=== PATIENT | male | born 1995 | race Caucasian/White ===

== ENCOUNTER 2018-05-13 09:21 | Emergency (ER) | payer BC, SELFPAY ==
[2018-05-13 09:23] VITALS: BP 129/81; PULSE 90; RESP 16; TEMP 37.2; O2SAT 98; BMI 30.4
--- NOTE | 2018-05-13 09:34 | ED.VISSUMM ---
- ER Visit Summary Date of Service: 05/13/18 Chief Complaint: Fall History of Present Illness: The patient is a 23 M who presents after a fall that occurred earlier this morning. Patient admits to being intoxicated when he fell. Patient states he drank at least 24 beers yesterday. Patient hit the right side of his head. Patient has a laceration to his right lateral periorbital area. Patient applied superglue to the cut her to arrival. Patient does not think he lost consciousness. Patient denies any pain currently. Patient states his last tetanus was approximately 9 years ago. Patient denies any visual changes. Patient denies any nausea or vomiting. Patient denies any hearing changes or tinnitus. Physical Examination: Vital signs are stable. Patient is afebrile. Patient is in no acute distress. Pupils are equal, round, and reactive to light bilaterally. Extraocular muscles are intact. There is no diplopia noted. Vertical gaze is equal bilaterally. There is some right periorbital ecchymosis over the upper eyelid. There is some tenderness over the inferior orbital ridge on the right. There is no bony crepitance or step-off. There is a 2.5 cm laceration over the lateral aspect of the right eyebrow. There is no gapping of the wound margins. There is superglue noted over the laceration. There is no active bleeding. There is no surrounding erythema. Oral mucosa is pink and moist. Neck is supple. Trachea is midline. There is no JVD noted. Heart was regular rate and rhythm. Lungs are clear and equal bilaterally. There is good respiratory effort noted. Cranial nerves II through XII are grossly intact. There are no focal motor or sensory deficits noted. The remaining physical exam is within normal limits. Test Results: CT scan of the orbits was obtained. There is no acute fracture. Emergency Department Course and Treatment: Patient was advised to stop drinking alcohol. Patient was advised to watch for signs of infection around the laceration. Patient was given head injury instructions. Patient was instructed on signs and symptoms which should prompt return to the emergency department. Patient understood and was agreeable with the plan. All questions were answered. Disposition: Discharge home Impression: Right eye contusion, right periorbital laceration This note was generated with [employer] dictation software. It may contain incorrect words, spelling, and punctuation that were not noted in review of the chart prior to signing ED Disposition - Plan for ED Patient: Disposition: Home or Assisted Living Chief Complaint: Head Injury Diagnosis: Head contusion, Laceration of right eyebrow Instructions: ED Head Injury Closed Referrals: NOT,DEFINED [NON-STAFF] - Additional Instructions: Stop drinking alcohol. Follow-up with your primary care physician in 3-5 days. Take Tylenol as needed for pain.
== END 2018-05-13 10:43 | disposition home or self-care (01) ==
PROVIDERS: Emergency Provider Emergency Medicine
DX: S01.111A Laceration without foreign body of right eyelid and periocular area, initial encounter (principal); W19.XXXA Unspecified fall, initial encounter; Y93.9 Activity, unspecified; Y92.9 Unspecified place or not applicable; Y99.9 Unspecified external cause status; F41.9 Anxiety disorder, unspecified; Z72.0 Tobacco use; Z79.899 Other long term (current) drug therapy
CPT/HCPCS: 70480; 99281